=== PATIENT | male | born 1965 | race Caucasian/White ===

== ENCOUNTER 2025-07-30 23:25 | Emergency (ER) | payer OTHER ==
[~2025-07-30] VITALS: Ht 180.3 cm; Wt 72.6 kg
[2025-07-30 23:27] VITALS: BP 188/96; PULSE 73; RESP 20; TEMP 96.1
--- NOTE | 2025-07-31 00:29 | NUR ---
PATIENT DECIDED TO LEAVE AMA
--- NOTE | 2025-07-31 00:36 | HMCIMG ---
EXAM: CR Cervical spine, 6 Views. CLINICAL HISTORY: RIGHT NECK PAIN COMPARISON: None provided. FINDINGS: BONES: No acute fracture or aggressive-appearing osseous lesion. DISCS/DEGENERATIVE CHANGES: Loss of cervical lordosis. Multilevel marginal osteophytes. Minimal disc height reduction at C3-C4 to C6-C7 levels. Posterior vertebral body alignment is within normal limits. Visualized parts of the dens and atlantoaxial articulation are unremarkable. SOFT TISSUES: No prevertebral soft tissue swelling. Fibrotic changes in the lung apices. Calcific atherosclerotic changes in the carotid vessels. IMPRESSION: No acute cervical spine abnormality. Loss of cervical lordosis could be from paraspinal muscle spasm. /[place]
--- NOTE | 2025-07-31 00:41 | ERN ---
General Chief Complaint: Multiple Complaints Stated Complaint: NECK PAIN, BACK PAIN, LLE EDEMA Time Seen by MD: 23:29 Source: patient History of Present Illness Initial Comments PATIENT IS A 60-YEAR-OLD MALE COMING IN WITH MULTIPLE COMPLAINTS. PATIENT STATES THAT HE HAS BEEN DEALING WITH THE NECK DISCOMFORT NECK PAIN HE DOES HAS A HISTORY OF ARTHRITIS OF THE LEFT HIP. LONG WITH THE HIS HE STATES THAT HE SAW RED IN HIS STOOL AND HAD NOTICED SAYS LOWER LEFT EXTREMITY MILDLY SWOLLEN. Past Medical History Past Medical History: COPD, Hypertension, Liver Disease Past Surgical History: None ROS Dictation CONSTITUTIONAL: NO CHILLS, NO FEVER, NO WEAKNESS, NO DIAPHORESIS, NO MALAISE. HEAD/FACE: NO SIGNS OF TRAUMA. EENT: NO EYE PAIN, NO BLURRED VISION, NO TEARING, NO DOUBLE VISION, NO EAR PAIN, NO EAR DISCHARGE, NO NOSE PAIN, NO NASAL CONGESTION, NO THROAT PAIN, NO THROAT SWELLING, NO MOUTH PAIN. RESPIRATORY: NO COUGH, NO ORTHOPNEA, NO SOB, NO STRIDOR, NO WHEEZING. CARDIOVASCULAR: NO CHEST PAIN, NO EDEMA, NO PALPITATIONS, NO SYNCOPE. GASTROINTESTINAL/ABDOMINAL: NO ABDOMINAL PAIN, NO CONSTIPATION, NO DIARRHEA, NO NAUSEA, NO VOMITING. GENITOURINARY: NO ABNORMAL DISCHARGE, NO DYSURIA, NO FREQUENT URINATION, NO HEMATURIA. NO COMPLAINTS OF PAIN IN THE GENITALS. MUSCULOSKELETAL: NO BACK PAIN, NO GOUT, NO JOINT PAIN, NO JOINT SWELLING, MUSCLE PAIN, NO MUSCLE STIFFNESS, NECK PAIN. INTEGUMENTARY: NO CHANGE IN COLOR, NO CHANGE IN HAIR/NAILS, NO DRYNESS, NO LESION, NO LUMPS, NO RASH. NEUROLOGICAL/PSYCH: NO ANXIETY, NOT DEPRESSED, NO EMOTIONAL PROBLEM, NO H EADACHE, NO NUMBNESS, NO PRE-EXISTING DEFICIT, NO HISTORY OF SEIZURES, NO TREMORS, NO WEAKNESS. HEMATOLOGIC/LYMPHATIC: NOT ANEMIC, NO HISTORY OF BLOOD CLOTS, NO APPARENT BLEEDING, NO BRUISING, GLANDS NOT SWOLLEN. ALL SYSTEMS NEGATIVE, EXCEPT NOTED. Physical Exam Physical Exam Dictation VITAL SIGNS: REVIEWED. GENERAL APPEARANCE: ALERT, ORIENTED X3, NO ACUTE DISTRESS, OBESE. HEAD AND FACE: NON-TRAUMATIC. EYES: PERRL, PINK CONJUNCTIVAS, EYELID NO TRAUMA, ANTERIOR CHAMBER CLEAR. EARS: PINNAS INTACT AND NO SIGNS OF TRAUMA OR ERYTHEMA. EAR CANALS CLEAR AND NO DISCHARGE. TMS NO ERYTHEMA. NOSE: NO DISCHARGE, NO BLEEDING. OROPHARYNX: MOUTH NORMAL, TEETH NO CARIES, TONGUE PINK. PHARYNX CLEAR, NO ERYTHEMA. TONSILS NO EXUDATES, NO ABSCESSES NOTED. MUCOUS MEMBRANE MOIST. NECK: SUPPLE, NON-TENDER, NO THYROMEGALY, NO MASSES, NO JVD, NO BRUITS. BREAST: DEFERRED. CHEST: NO TENDERNESS, NO CREPITUS, NO PARADOXICAL MOVEMENT, NO RETRACTIONS. LUNGS: CLEAR, WELL-VENTILATED, SYMMETRIC, NO RALES, NO WHEEZING, NO RHONCHI, NO STRIDOR, GOOD BREATH SOUNDS BILATERALLY. HEART: REGULAR RATE, REGULAR RHYTHM, NO MURMUR, NO GALLOPS. VASCULAR: NO PERIPHERAL EDEMA. ABDOMEN: SOFT, POSITIVE BOWEL SOUNDS, NONDISTENDED, NO GUARDING, NONTENDER, NO REBOUND, NO MASSES NO HEPATOMEGALY, NO SPLENOMEGALY, NO LOTT'S SIGN, NO HERNIAS. RECTAL: DEFERRED. GENITAL: DEFERRED. NEUROLOGICAL: NORMAL SPEECH, GROSS MOTOR FUNCTION INTACT, GROSS SENSORY FUNCTION INTACT. MUSCULOSKELETAL: NECK NONTENDER, FULL RANGE OF MOTION, BACK NONTENDER, FULL RANGE OF MOTION. EXTREMITIES: NONTENDER, FULL RANGE OF MOTION. SKIN: COLOR PINK, DRY, NO TURGOR, NO RASH, NO LACERATIONS, NO ABRASIONS, NO CONTUSIONS. LYMPHATICS: DEFERRED. Results Laboratory and Microbiology Labs Reviewed?: Yes EKG/XRAY/US/CT/MRI X-RAY Comment [place] [id number] [address] IMAGING REPORT Signed PATIENT: JOSIAS LAIRD MR#: [id number] : 1965 SEX: M AGE: 60 LOCATION: [facility] ORDER 32 STATUS: REG ER REPORT#: [id number] SERVICE 31 REASON: RIGHT NECK PAIN ORDERING PHYSICIAN: CHARLOTTE VELEZ MD PROCEDURE: CERV 2 3VW - CERV SPINE 2-3VWS EXAM: CR Cervical spine, 6 Views. CLINICAL HISTORY: RIGHT NECK PAIN COMPARISON: None provided. FINDINGS: BONES: No acute fracture or aggressive-appearing osseous lesion. DISCS/DEGENERATIVE CHANGES: Loss of cervical lordosis. Multilevel marginal osteophytes. Minimal disc height reduction at C3-C4 to C6-C7 levels. Posterior vertebral body alignment is within normal limits. Visualized parts of the dens and atlantoaxial articulation are unremarkable. SOFT TISSUES: No prevertebral soft tissue swelling. Fibrotic changes in the lung apices. Calcific atherosclerotic changes in the carotid vessels. IMPRESSION: No acute cervical spine abnormality. Loss of cervical lordosis could be from paraspinal muscle spasm. /[place] DICTATED BY: RUDY AWAD Jr., MD DATE: 07/31/25135 ELECTRONICALLY SIGNED BY: RUDY AWAD Jr., MD DATE: 07/31/25135 MDM MDM: DIFFERENTIAL DIAGNOSIS: ARTHRITIS, CHRONIC MUSCLE PAIN, RATIONALE: TESTS CONSIDERED AND ORDERED SECONDARY TO SHARED DECISION MAKING INCLUDE: PREVIOUS OUTSIDE RECORDS REVIEWED: OLD ER VISITS. RISK OF COMPLICATION AND/OR MORBIDITY OR MORTALITY OF PATIENT MANAGEMENT: NONE MEDICATIONS-PER MEDICATION RECONCILIATION NEED FOR HOSPITALIZATION: PATIENT DOES NOT MEET CRITERIA FOR HOSPITALIZATION. NEED FOR EMERGENCY MAJOR/MINOR SURGERY: NO PATIENT IS A 60-YEAR-OLD GENTLEMAN COMING IN WITH MULTIPLE COMPLAINTS. PER PATIENT HE HAS BEEN HAVING RIGHT SHOULDER PAIN ACUTE ON CHRONIC WELL HIP DISCOMFORT AND LEFT FOOT PAIN. ALONG WITH THE SHE STATES THAT HE SAW RED IN HIS STOOLS IN THE WANTS TO EVALUATED. LABORATORY WORKUP WHICH INCLUDES OCCULT BLOOD TESTS WERE NOT PERFORMED DUE TO PATIENT ELOPING FROM ER WITHOUT NOTIFYING ME. ED Course Orders Procedure Category Date Status Time Occult Blood Stool LAB 07/30/25 Logged Single Only 23:32 Cerv Spine 2-3vws RAD 07/30/25 Resulted 23:32 Vital Signs Date Time Temp Pulse Resp B/P (MAP) Pulse Ox O2 Delivery O2 Flow Rate FiO2 07/30/25 23:27 96.1 73 20 188/96 97 Room Air 0 DX & DISP Disposition: AMA Departure Impression: Primary Impression: Chronic shoulder pain Additional Impression: History of rheumatoid arthritis Condition: Against Medical Advice Additional Instructions: WAS NOTIFIED BY NURSING STAFF THAT PATIENT ELOPED WITHOUT NOTIFYING ME Time of Disposition: 00:55 CHARLOTTE VELEZ MD Jul 31, 2025 00:41
== END 2025-07-31 01:09 | disposition left against medical advice (07) ==
LOC: EDH 23:25
DX: G89.29 Other chronic pain (principal); M25.511 Pain in right shoulder; M25.552 Pain in left hip; M79.672 Pain in left foot; M54.2 Cervicalgia; K92.1 Melena; R22.42 Localized swelling, mass and lump, left lower limb; M16.12 Unilateral primary osteoarthritis, left hip; I10 Essential (primary) hypertension; J44.9 Chronic obstructive pulmonary disease, unspecified; M06.9 Rheumatoid arthritis, unspecified
CPT/HCPCS: 72040; 99283